=== PATIENT | male | born 1965 | race Caucasian/White ===

== ENCOUNTER 2022-06-22 08:29 | Day surgery (SDC) | payer OTHER, SELFPAY ==
[2022-06-22] VITALS (7 sets, daily range): BP systolic 73–116; BP diastolic 36–78; PULSE 61–81; RESP 16–18; TEMP 36.1; O2SAT 96–98; BMI 24.3
[2022-06-22] MEDS: Lactated Ringers 1,000 ML 50 ML IVCONT (08:49)
--- NOTE | 2022-06-22 09:18 | P.CONAN_ITS ---
HPI - Anesthesia Eval Consult details Narrative: 56 yr old male with htn,hld,gerd for colon screen [facility] Past Medical History Medical History (Updated 06/21/22 @ 13:56 by Patt Ramsay RN) Asthma GERD (gastroesophageal reflux disease) Hiatal hernia HTN (hypertension) Hyperlipemia Kidney stones Family History Family history of problems with anesthesia: No Surgical History Surgical History (Updated 06/21/22 @ 13:56 by Patt Ramsay RN) H/O colonoscopy H/O esophagogastroduodenoscopy H/O sinus surgery History of Problems with Anesthesia: No Social History Social History Patient Tobacco Use Status: Never used Tobacco Are you DNR?: No Advance Directives: No Advance Directives Information Provided: Yes Nutrition Risks: No Nutritional Risk Meds Allergies Allergy/AdvReac Type Severity Reaction Status Date / Time amlodipine AdvReac tachycardia Verified 06/21/22 13:54 Active Medications: Current Medications Lactated Ringer's (Lr) 1,000 mls @ 50 mls/hr IVCONT .Q20H HAYLEE Last Admin: 06/22/22 08:49 Dose: 50 mls/hr Sodium Biphosphate/Sodium Phosphate (Sodium Phosphate,Beaver-Dibasic 133 Ml Enema) 133 ml [place] ONCE PRN PRN Reason: Poor Colonoscopy Prep Results Home Medications Medication Instructions Recorded Confirmed Last Taken Type atorvastatin 10 mg tablet 1 tab PO DAILY 06/21/22 06/21/22 06/21/22 History budesonide-formoterol HFA 80 2 puff inhalation DAILY 06/21/22 06/21/22 06/21/22 History mcg-4.5 mcg/actuation aerosol inhaler (Symbicort) clonidine HCl 0.1 mg tablet 1 tab PO DAILY PRN anxiety 06/21/22 06/21/22 06/21/22 History doxazosin 1 mg tablet 1 tab PO BEDTIME 06/21/22 06/21/22 06/21/22 History loratadine 10 mg tablet (Claritin) 10 mg PO DAILY PRN allergies 06/21/22 06/21/22 06/21/22 History losartan 50 mg tablet 1 tab PO DAILY 06/21/22 06/21/22 06/22/22 History montelukast 10 mg tablet 1 tab PO DAILY 06/21/22 06/21/22 06/21/22 History omeprazole 20 mg capsule,delayed 20 mg PO DAILY 06/21/22 06/21/22 06/21/22 History release Exam Exam Date and Time: June 22, 2022 0918 Height,Weight and Vital Signs: Height 5 ft 9 in Weight 74.843 kg Last Vital Signs Temp 96.9 F 06/22/22 08:30 Pulse 76 06/22/22 08:30 Resp 18 06/22/22 08:30 BP 116/78 06/22/22 08:30 Pulse Ox 98 06/22/22 08:30 O2 Del Method 06/22/22 08:30 Airway Mallampati Class: II TM Dist: >3cm Neck ROM: Full Heart: rrr Lungs: cta Assessment and Plan Assessment Anesthesia Assessment: Anesthesia Plan Discussed and Chart Reviewed Final Anesthetic Review Family History of Problems with Anesthesia: No History of Problems with Anesthesia: No NPO: Yes ASA Class: II Final Preanesthetic Review: No Changes in Pt Med Stat, Meds/Allgs Chart Reviewed, Consent Obtained/Reviewed and Anes Risks/Benef Reviewed Patient Risk: Low Procedure Risk: Low Anesthetic Plan Anesthetic Plan: MAC: Disposition: Standard PACU
--- NOTE | 2022-06-22 10:20 | PM.OP ---
Brief Operative Note Date of Service: 06/22/22 Pre-op diagnosis: Screening Post-op diagnosis: other (Polyps) Procedure: Colonoscopy to the cecum and TI with hot snare polypectomy (cecum) and bx/removal of polyp(Ascending colon) Surgeon: Car Fox Anesthesia: MAC Was an Cabin Worker used for this Procedure?: No Estimated blood loss (mL): 2.0 Pathology: other (A. Cecal polyp B. Ascending colon polyp) Condition: stable Disposition: PACU
--- NOTE | 2022-06-22 19:13 | OP_ITS ---
SURGEON: Car Fox MD INDICATIONS: The patient presents for evaluation of colorectal cancer screening and personal history of tubular adenoma of colon. Full consent was obtained from him for this, including risks of bleeding and perforation. PREOPERATIVE DIAGNOSIS: POSTOPERATIVE DIAGNOSIS: PROCEDURE PERFORMED: Colonoscopy of the cecum and terminal ileum with hot snare polypectomy and biopsy and removal of polyp. ESTIMATED BLOOD LOSS: COMPLICATIONS: ANESTHESIA: Monitored anesthesia care. ASSISTANTS: SPECIMENS: PREOPERATIVE DIAGNOSES: Personal history of tubular adenoma of the colon and colorectal cancer screening. POSTOPERATIVE DIAGNOSES: Personal history of tubular adenoma of the colon and colorectal cancer screening, colon polyps, diverticulosis, and internal hemorrhoids. DESCRIPTION OF PROCEDURE: The patient was placed in the left lateral decubitus position. The digital rectal revealed no abnormalities. The Olympus video pediatric colonoscope was entered into the rectum and advanced easily to the cecum. Once in the cecum, I did identify cecal pouch with appendiceal orifice and a normal-appearing ileocecal valve. The entire cecum was well visualized. The area of cecum adjacent to the appendiceal orifice was an approximately 8 mm slightly raised polyp which was removed by hot snare polypectomy and was covered by suction. The polypectomy site appeared clean, without any sign of residual polyp nor bleeding. The remainder of the cecum appeared normal. The scope was slowly withdrawn assessing all mucosal surfaces carefully. Preparation was excellent. The ascending colon was approximately 4 mm polyp which was biopsied and completely removed with the cold biopsy forceps. I did not visualize any other polyps, colitis, or angiodysplasia. There was a mild amount of sigmoid diverticulosis. In the rectum, scope was retroflexed, visualizing internal hemorrhoids, but not other pathology. The rectal mucosa appeared normal. The scope was straightened and withdrawn from the patient. He tolerated the procedure well and was returned to recovery area in stable condition. IMPRESSION: 1. Colon polyps. 2. Diverticulosis. 3. Internal hemorrhoids. PLAN: The results of the pathology will be checked. I would recommend a repeat colonoscopy in 5 years. He was advised not used any aspirin or NSAIDs for ne week. MD IZZY Villafuerte/DALTON / [id number]
== END 2022-06-22 11:39 | disposition home or self-care (01) ==
PROVIDERS: PCP Nurse Practitioner Family; Visit Provider Internal Medicine
PROC: 0DJD8ZZ Inspection of Lower Intestinal Tract, Via Natural or Artificial Opening Endoscopic (ICD-10-PCS; CPT 45378; principal; 2022-06-22 09:30)
DX: Z12.11 Encounter for screening for malignant neoplasm of colon (principal); Z86.010 Personal history of colon polyps; D12.2 Benign neoplasm of ascending colon; K63.5 Polyp of colon; K57.30 Diverticulosis of large intestine without perforation or abscess without bleeding; K64.8 Other hemorrhoids; K21.9 Gastro-esophageal reflux disease without esophagitis; I10 Essential (primary) hypertension; E78.5 Hyperlipidemia, unspecified; J45.909 Unspecified asthma, uncomplicated; Z79.51 Long term (current) use of inhaled steroids; Z79.899 Other long term (current) drug therapy; Z88.8 Allergy status to other drugs, medicaments and biological substances
CPT/HCPCS: 45385; 45380; 88305; J2370